=== PATIENT | male | born 1990 | race Caucasian/White ===

== ENCOUNTER → 2020-02-21 | Outpatient (CLI) | payer SELFPAY ==
[2020-02-21 11:47] LABS: Luteinizing Hormone 5.4 mIU/mL; Prolactin 10.2 ng/mL (2.1-17.7)
== END | disposition home or self-care (01) ==
LOC: LABWHC1 07:21
PROVIDERS: ATTEND Urology
DX: N52.9 Male erectile dysfunction, unspecified (principal)
CPT/HCPCS: 36415; 83002; 84146; 84402; 84403